=== PATIENT | female | born 1935 | race Two or more races ===

== ENCOUNTER 2017-10-22 12:44 | Inpatient (IN) | payer OTHER ==
[~2017-10-22] VITALS: Ht 149.9 cm; Wt 57.6 kg
[2017-10-22 13:15] VITALS: BP 151/94
[2017-10-22] MEDS ORDERED: Albuterol ud Inhalation HHN ONE (13:15)
[2017-10-22] MEDS ORDERED: Ipratropium 0.02% Inh Soln 2.5ml UD HHN ONE (13:15)
[2017-10-22 13:53] LABS: BASOPHILS % (AUTO) 1.4 % (0.0-2.0); EOSINOPHILS % (AUTO) 4.2 % (0.0-3.0); LYMPHOCYTES % (AUTO) 32.8 % (20.0-45.0); MEAN CORPUSCULAR HEMOGLOBIN 28.4 PG (27.0-31.0); MEAN CORPUSCULAR HGB CONC 31.3 G/DL (32.0-36.0); MEAN CORPUSCULAR VOLUME 91 FL (80-99); MEAN PLATELET VOLUME 6.8 FL (6.5-10.1); NEUTROPHILS % (AUTO) 51.6 % (45.0-75.0); PLATELET COUNT 277 K/UL (150-450); RED BLOOD COUNT 4.68 M/UL (4.20-5.40); WHITE BLOOD COUNT 13.9 K/UL (4.8-10.8)
[2017-10-22] MEDS ORDERED: Solu-MEDROL 125mg Inj IVP ONE (14:00)
[2017-10-22 14:07] LABS: PROTHROMBIN TIME 10.1 SEC (9.30-11.50)
[2017-10-22 14:08] LABS: ANION GAP 8 mmol/L (5-15); CALCIUM 9.3 MG/DL (8.5-10.1); CARBON DIOXIDE 25 MMOL/L (21-32); CHLORIDE 99 MMOL/L (98-107); CREATININE 0.7 MG/DL (0.55-1.30); POTASSIUM 4.8 MMOL/L (3.5-5.1); SODIUM 132 MMOL/L (136-145)
[2017-10-22 14:24] LABS: ALANINE AMINOTRANSFERASE 16 U/L (12-78); ALBUMIN/GLOBULIN RATIO 0.6 (1.0-2.7); ASPARTATE AMINO TRANSFERASE 42 U/L (15-37); TOTAL PROTEIN 8.9 G/DL (6.4-8.2)
[2017-10-22 14:40] LABS: APPEARANCE,URINE CLEAR; KETONES,URINE NEGATIVE (NEGATIVE); NITRITE,URINE NEGATIVE (NEGATIVE); PH,URINE 7 (4.5-8.0); PROTEIN,URINE NEGATIVE (NEGATIVE); UROBILINOGEN,URINE NORMAL MG/DL (0.0-1.0)
[2017-10-22 14:54] LABS: LEUKOCYTE ESTERASE ,URINE 1+ (NEGATIVE); RBC,URINE 0 /HPF (0 - 2); SQUAMOUS EPITHELIAL CELL,UR OCCASIONAL /LPF (NONE/OCC); WBC,URINE 0-2 /HPF (0 - 2)
[2017-10-22] MEDS ORDERED: ASPIRIN81 MG ORAL (15:01)
[2017-10-22] MEDS ORDERED: TAB-A-VITE1 EACH ORAL (15:02)
[2017-10-22] MEDS ORDERED: LISINOPRIL20 MG ORAL (15:02)
[2017-10-22] MEDS ORDERED: PROVENTIL HFA6.7 G1 IH (15:03)
[2017-10-22 15:05] VITALS: BP 148/90
[2017-10-22] MEDS ORDERED: Albuterol/Ipratropium 3ml neb HHN PRN (15:15)
[2017-10-22] MEDS ORDERED: Nitroglycerin Subl 0.4mg tab SL PRN (15:15)
[2017-10-22] MEDS ORDERED: Promethazine/Codeine 5ml UD ORAL PRN (15:15)
[2017-10-22] MEDS ORDERED: LORazepam Inj 2mg/ml 1ml IV PRN (15:15)
[2017-10-22] MEDS ORDERED: Morphine Sulfate 2mg/ml Inj IVP PRN (15:15)
[2017-10-22] MEDS ORDERED: Ketorolac 30mg Inj IV PRN (15:15)
--- NOTE | 2017-10-22 15:48 | Emergency Room Report ---
History of Present Illness General Chief Complaint: Dyspnea/Respdistress Source: Patient Present Illness HPI Patient is a 81-year-old female sent in by primary care physician for increased difficulty breathing. Patient prior history of lung disease. Patient reports taking inhalers. She is followed by Dr. Nolen. Patient reportedly had increased difficulty breathing. This was worse with exertion. Patient had prior history of asthma for which she takes inhalers. The patient was noted to have diminished oxygen saturation. she reported having increased nonproductive cough. Allergies: Coded Allergies: No Known Allergies (Unverified , 10/22/17) Patient History Past Medical History: see triage record Last Menstrual Period: na Reviewed Nursing Documentation: PMH: Agreed, PSxH: Agreed Nursing Documentation-PMH Past Medical History: No History, Except For Hx Hypertension: Yes Hx Asthma: Yes Review of Systems All Other Systems: negative except mentioned in HPI Physical Exam Vital Signs Date Time Temp Pulse Resp B/P (MAP) Pulse Ox O2 Delivery O2 Flow Rate FiO2 10/22/17 13:05 99.3 108 28 151/94 93 Room Air 10/22/17 13:33 21 Sp02 EP Interpretation: reviewed, normal General Appearance: normal inspection, alert, GCS 15, moderate distress, Chronically Ill Head: atraumatic ENT: normal ENT inspection, hearing grossly normal, normal voice Neck: normal inspection, full range of motion, supple, no bony tend Respiratory: normal inspection, no respiratory distress, no retraction, wheezing Cardiovascular #1: regular rate, rhythm, no edema Gastrointestinal: normal inspection, normal bowel sounds, non tender, soft, no guarding, no hernia Genitourinary: no CVA tenderness Musculoskeletal: normal inspection, back normal, normal range of motion Neurologic: normal inspection, alert, oriented x3, responsive, media manager III-XII nml as tested, speech normal Psychiatric: normal inspection, judgement/insight normal, mood/affect normal Skin: normal inspection, normal color, no rash Medical Decision Making Diagnostic Impression: Primary Impression: COPD with acute exacerbation ER Course Patient presented for abdominal pain. Differential included but was not limited to anemia, pneumonia, pneumothorax, myocardial infarction, pericardial effusion, congestive heart failure, acidosis. Because of complexity of patient' s case laboratory testing and imaging studies were ordered.EKG interpreted by me showed sinus tachycardia with rate [address] or T wave changes. Patient was noted to have an incomplete right bundle branch block. The patient started on IV steroids as well as breathing treatments. Chest x-ray one view interpreted by me showed interstitial lung markings which were increased consistent with chronic lung disease. Dr. peters was contacted for inpatient management due to insurance capitated hospitalist Labs Test 10/22/17 13:30 10/22/17 14:00 10/22/17 14:15 White Blood Count 13.9 K/UL (4.8-10.8) Red Blood Count 4.68 M/UL (4.20-5.40) Hemoglobin 13.3 G/DL (12.0-16.0) Hematocrit 42.6 % (37.0-47.0) Mean Corpuscular Volume 91 FL (80-99) Mean Corpuscular Hemoglobin 28.4 PG (27.0-31.0) Mean Corpuscular Hemoglobin Concent 31.3 G/DL (32.0-36.0) Red Cell Distribution Width 12.0 % (11.6-14.8) Platelet Count 277 K/UL (150-450) Mean Platelet Volume 6.8 FL (6.5-10.1) Neutrophils (%) (Auto) 51.6 % (45.0-75.0) Lymphocytes (%) (Auto) 32.8 % (20.0-45.0) Monocytes (%) (Auto) 10.0 % (1.0-10.0) Eosinophils (%) (Auto) 4.2 % (0.0-3.0) Basophils (%) (Auto) 1.4 % (0.0-2.0) Prothrombin Time 10.1 SEC (9.30-11.50) Prothromb Time International Ratio 1.0 (0.9-1.1) Activated Partial Thromboplast Time 29 SEC (23-33) D-Dimer 0.42 mg/L FEU (0.00-0.49) Sodium Level 132 MMOL/L (136-145) Potassium Level 4.8 MMOL/L (3.5-5.1) Chloride Level 99 MMOL/L (98-107) Carbon Dioxide Level 25 MMOL/L (21-32) Anion Gap 8 mmol/L (5-15) Blood Urea Nitrogen 12 mg/dL (7-18) Creatinine 0.7 MG/DL (0.55-1.30) Estimat Glomerular Filtration Rate mL/min (>60) Glucose Level 101 MG/DL (74-106) Calcium Level 9.3 MG/DL (8.5-10.1) Total Bilirubin 0.4 MG/DL (0.2-1.0) Aspartate Amino Transf (AST/SGOT) 42 U/L (15-37) Alanine Aminotransferase (ALT/SGPT) 16 U/L (12-78) Alkaline Phosphatase 66 U/L (46-116) Troponin I 0.000 ng/mL (0.000-0.056) Pro-B-Type Natriuretic Peptide 125 pg/mL (0-125) Total Protein 8.9 G/DL (6.4-8.2) Albumin 3.3 G/DL (3.4-5.0) Globulin 5.6 g/dL Albumin/Globulin Ratio 0.6 (1.0-2.7) Lactic Acid Level 1.00 mmol/L (0.66-2.22) Urine Color Pale yellow Urine Appearance Clear Urine pH 7 (4.5-8.0) Urine Specific [place] 1.010 (1.005-1.035) Urine Protein Negative (NEGATIVE) Urine Glucose (UA) Negative (NEGATIVE) Urine Ketones Negative (NEGATIVE) Urine Occult Blood Negative (NEGATIVE) Urine Nitrite Negative (NEGATIVE) Urine Bilirubin Negative (NEGATIVE) Urine Urobilinogen Normal MG/DL (0.0-1.0) Urine Leukocyte Esterase 1+ (NEGATIVE) Urine RBC 0 /HPF (0 - 2) Urine WBC 0-2 /HPF (0 - 2) Urine Squamous Epithelial Cells Occasional /LPF Urine Bacteria None /HPF (NONE) EKG Diagnostic Results Rate: tachycardiac - 106 Rhythm: NSR ST Segments: no acute changes Rhythm Strip Diag. Results EP Interpretation: yes Rhythm: NSR, no PVC's, no ectopy Last Vital Signs Date Time Temp Pulse Resp B/P (MAP) Pulse Ox O2 Delivery O2 Flow Rate FiO2 10/22/17 13:48 103 24 100 Room Air 21 10/22/17 13:15 99.3 151/94 Status: unchanged Condition: Serious Referrals: SUDHA NOLEN (PCP) Kelton Fitzgerald Oct 22, 2017 15:48
--- NOTE | 2017-10-22 16:27 | History and Physical ---
History of Present Illness General Date patient seen: Oct 22, 2017 Reason for Hospitalization: Dyspnea/Respdistress Present Illness HPI 81-year-old female with hx of HTN and asthma was sent in by primary care physician for increased difficulty breathing and dry cough. Slightest activity made her SOB. The patient was noted to have diminished oxygen saturation. she reported having increased nonproductive cough. She is admitted for acute exacerbation of COPD/ Asthma Allergies: Coded Allergies: No Known Allergies (Unverified , 10/22/17) Medication History Scheduled Aspirin* (Aspirin*), 81 MG ORAL DAILY, (Reported) Lisinopril (Lisinopril*), 20 MG ORAL DAILY, (Reported) Multivitamin (Tab-A-David), 1 TAB ORAL DAILY, (Reported) Miscellaneous Medications Albuterol Sulfate (Proventil Hfa), 90 MCG IH, (Reported) Patient History Healthcare decision maker Resuscitation status Advanced Directive on File Past Medical/Surgical History Past Medical/Surgical History: (1) History of asthma Review of Systems Constitutional: Reports: no symptoms Eye: Reports: no symptoms Physical Exam General Appearance: WD/WN, alert Lines, tubes and drains: peripheral, central line HEENT: normocephalic, atraumatic Neck: normal alignment, supple Respiratory/Chest: chest wall non-tender, lungs clear, decreased breath sounds Breasts: no masses Cardiovascular/Chest: normal rate, regular rhythm Abdomen: normal bowel sounds, non tender Genitourinary/Rectal: normal genital exam Last 24 Hour Vital Signs Date Time Temp Pulse Resp B/P (MAP) Pulse Ox O2 Delivery O2 Flow Rate FiO2 10/22/17 13:48 103 24 100 Room Air 21 10/22/17 13:33 21 10/22/17 13:33 100 21 Room Air 21 10/22/17 13:33 100 21 100 Room Air 21 10/22/17 13:15 99.3 104 25 151/94 93 Room Air 10/22/17 13:15 104 28 Room Air 10/22/17 13:05 99.3 108 28 151/94 93 Room Air Laboratory Tests Test 10/22/17 13:30 10/22/17 14:00 10/22/17 14:15 White Blood Count 13.9 K/UL (4.8-10.8) H Red Blood Count 4.68 M/UL (4.20-5.40) Hemoglobin 13.3 G/DL (12.0-16.0) Hematocrit 42.6 % (37.0-47.0) Mean Corpuscular Volume 91 FL (80-99) Mean Corpuscular Hemoglobin 28.4 PG (27.0-31.0) Mean Corpuscular Hemoglobin Concent 31.3 G/DL (32.0-36.0) L Red Cell Distribution Width 12.0 % (11.6-14.8) Platelet Count 277 K/UL (150-450) Mean Platelet Volume 6.8 FL (6.5-10.1) Neutrophils (%) (Auto) 51.6 % (45.0-75.0) Lymphocytes (%) (Auto) 32.8 % (20.0-45.0) Monocytes (%) (Auto) 10.0 % (1.0-10.0) Eosinophils (%) (Auto) 4.2 % (0.0-3.0) H Basophils (%) (Auto) 1.4 % (0.0-2.0) Prothrombin Time 10.1 SEC (9.30-11.50) Prothromb Time International Ratio 1.0 (0.9-1.1) Activated Partial Thromboplast Time 29 SEC (23-33) D-Dimer 0.42 mg/L FEU (0.00-0.49) Sodium Level 132 MMOL/L (136-145) L Potassium Level 4.8 MMOL/L (3.5-5.1) Chloride Level 99 MMOL/L (98-107) Carbon Dioxide Level 25 MMOL/L (21-32) Anion Gap 8 mmol/L (5-15) Blood Urea Nitrogen 12 mg/dL (7-18) Creatinine 0.7 MG/DL (0.55-1.30) Estimat Glomerular Filtration Rate mL/min (>60) Glucose Level 101 MG/DL (74-106) Calcium Level 9.3 MG/DL (8.5-10.1) Total Bilirubin 0.4 MG/DL (0.2-1.0) Aspartate Amino Transf (AST/SGOT) 42 U/L (15-37) H Alanine Aminotransferase (ALT/SGPT) 16 U/L (12-78) Alkaline Phosphatase 66 U/L (46-116) Troponin I 0.000 ng/mL (0.000-0.056) Pro-B-Type Natriuretic Peptide 125 pg/mL (0-125) Total Protein 8.9 G/DL (6.4-8.2) H Albumin 3.3 G/DL (3.4-5.0) L Globulin 5.6 g/dL Albumin/Globulin Ratio 0.6 (1.0-2.7) L Lactic Acid Level 1.00 mmol/L (0.66-2.22) Urine Color Pale yellow Urine Appearance Clear Urine pH 7 (4.5-8.0) Urine Specific [place] 1.010 (1.005-1.035) Urine Protein Negative (NEGATIVE) Urine Glucose (UA) Negative (NEGATIVE) Urine Ketones Negative (NEGATIVE) Urine Occult Blood Negative (NEGATIVE) Urine Nitrite Negative (NEGATIVE) Urine Bilirubin Negative (NEGATIVE) Urine Urobilinogen Normal MG/DL (0.0-1.0) Urine Leukocyte Esterase 1+ (NEGATIVE) H Urine RBC 0 /HPF (0 - 2) Urine WBC 0-2 /HPF (0 - 2) Urine Squamous Epithelial Cells Occasional /LPF Urine Bacteria None /HPF (NONE) Microbiology Date/Time Source Procedure Growth Status 10/22/17 13:35 Nasal Nares Influenza Types A,B Antigen (AMPARO) - Final Complete Height (Feet): 4 Height (Inches): 11.00 Weight (Pounds): 140 Medications Current Medications Medications (Trade) Dose Ordered Sig/Alex Route PRN Reason Start Time Stop Time Status Last Admin Dose Admin Albuterol/ Ipratropium (Albuterol/ Ipratropium) 3 ml Q4H PRN HHN dyspnea 10/22/17 15:15 10/27/17 15:14 Dextrose (Dextrose 50%) STAT PRN IV Hypoglycemia 10/22/17 15:15 11/21/17 15:14 Heparin Sodium (Porcine) (Heparin 5000 units/ml) 5,000 units EVERY 12 HOURS SUBQ 10/22/17 21:00 11/21/17 20:59 Ketorolac Tromethamine (Toradol 30mg) 30 mg Q8H PRN IV moderate pain 4-6 10/22/17 15:15 10/27/17 15:14 Lisinopril (Prinivil) 20 mg DAILY ORAL 10/23/17 09:00 11/22/17 08:59 Lorazepam (Ativan 2mg/ml 1ml) 0.5 mg Q4H PRN IV For Anxiety 10/22/17 15:15 10/29/17 15:14 Methylprednisolone Sodium Succinate (Solu-MEDROL) 60 mg EVERY 6 HOURS IV 10/22/17 18:00 11/21/17 17:59 Morphine Sulfate (Morphine Sulfate) 2 mg Q4H PRN IVP severe pain 7-10 10/22/17 15:15 10/29/17 15:14 Nitroglycerin (Ntg) 0.4 mg Q5M X 3 DOSES PRN SL Prn Chest Pain 10/22/17 15:15 11/21/17 15:14 Ondansetron HCl (Zofran) 4 mg Q6H PRN IVP Nausea & Vomiting 10/22/17 15:15 11/21/17 15:14 Piperacillin Sod/ Tazobactam Sod 3.375 gm/Dextrose 55 ml @ 13.75 mls/ hr Q8H IV 10/22/17 17:00 10/29/17 16:59 Promethazine HCl/ Codeine (Phenergan with Codeine) 5 ml Q6H PRN ORAL cough 10/22/17 15:15 11/21/17 15:14 Temazepam (Restoril) 15 mg HSPRN PRN ORAL Insomnia 10/22/17 15:15 10/29/17 15:14 Theophylline (Sharan-Dur) 100 mg EVERY 12 HOURS ORAL 10/22/17 21:00 11/21/17 20:59 Assessment/Plan Problem List: (1) Acute respiratory failure ICD Codes: J96.00 - Acute respiratory failure, unspecified whether with hypoxia or hypercapnia SNOMED: 01914815 (2) COPD with acute exacerbation ICD Codes: J44.1 - Chronic obstructive pulmonary disease with (acute) exacerbation SNOMED: 938273001 (3) History of asthma ICD Codes: Z87.09 - Personal history of other diseases of the respiratory system SNOMED: 678466369 Assessment/Plan respiratory treatment IV steroids IV abx check sputum titrate fio2 to sat of 92% ALICIA BOX Oct 22, 2017 16:27
[2017-10-22] MEDS: Piperacillin/Tazobactam 3.375 GM in D5W 55 ML IV SCH (17:46)
[2017-10-22] MEDS: Solu-MEDROL 125mg Inj IV SCH ×2 (17:46→23:55)
[2017-10-22 20:00] VITALS: BP 131/76
[2017-10-22] MEDS: Theophylline ER 100mg ORAL SCH (21:00)
[2017-10-22] MEDS: Heparin 5000 units/ml inj SUBQ SCH (21:01)
[2017-10-23 00:23] VITALS: BP 139/79
[2017-10-23] MEDS: Piperacillin/Tazobactam 3.375 GM in D5W 55 ML IV SCH ×3 (01:18→18:17)
[2017-10-23 04:20] VITALS: BP 140/77
[2017-10-23] MEDS: Solu-MEDROL 125mg Inj IV SCH ×4 (06:00→23:46)
[2017-10-23 08:00] VITALS: BP 142/75
[2017-10-23] MEDS ORDERED: Lisinopril 20mg tab ORAL SCH (09:00)
[2017-10-23] MEDS ORDERED: Tubing IV Secondary IV ONE (10:24)
[2017-10-23] MEDS ORDERED: NS 500ML ONE (10:24)
[2017-10-23] MEDS: Theophylline ER 100mg ORAL SCH ×2 (10:49→22:15)
[2017-10-23] MEDS: Heparin 5000 units/ml inj SUBQ SCH ×2 (10:51→22:15)
[2017-10-23 12:00] VITALS: BP 141/84
--- NOTE | 2017-10-23 14:40 | Pulmonology Progress Note ---
Assessment/Plan Problems: (1) Acute respiratory failure (2) COPD with acute exacerbation (3) History of asthma Assessment/Plan improving respiratory treatment check cultures taper steroids when respiratory symptoms improve Subjective ROS Limited/Unobtainable: No Constitutional: Reports: no symptoms HEENT: Repors: no symptoms Respiratory: Reports: no symptoms Allergies: Coded Allergies: No Known Allergies (Unverified , 10/22/17) Objective Last 24 Hour Vital Signs Date Time Temp Pulse Resp B/P (MAP) Pulse Ox O2 Delivery O2 Flow Rate FiO2 10/23/17 12:00 97.0 106 20 141/84 96 10/23/17 10:49 142/75 10/23/17 08:00 97.2 102 20 142/75 97 10/23/17 07:51 101 18 Nasal Cannula 2.0 28 10/23/17 04:20 97.0 100 20 140/77 95 10/23/17 04:00 93 10/23/17 00:23 97.3 100 20 139/79 93 Nasal Cannula 10/23/17 00:00 101 10/22/17 20:28 99 18 Room Air 2.0 28 10/22/17 20:00 97.0 104 20 131/76 96 10/22/17 20:00 102 10/22/17 16:45 98.5 106 22 148/90 96 Nasal Cannula 2.0 10/22/17 15:05 98.5 106 22 148/90 96 Nasal Cannula 2.0 General Appearance: WD/WN HEENT: atraumatic, anicteric Respiratory/Chest: chest wall non-tender, lungs clear Breasts: no masses Cardiovascular: normal rate Abdomen: normal bowel sounds, no organomegaly Genitourinary: normal external genitalia Extremities: no cyanosis Skin: no rash Microbiology Date/Time Source Procedure Growth Status 10/22/17 13:35 Nasal Nares Influenza Types A,B Antigen (AMPARO) - Final Complete Current Medications Medications (Trade) Dose Ordered Sig/Alex Route PRN Reason Start Time Stop Time Status Last Admin Dose Admin Albuterol/ Ipratropium (Albuterol/ Ipratropium) 3 ml Q4H PRN HHN dyspnea 10/22/17 15:15 10/27/17 15:14 Dextrose (Dextrose 50%) STAT PRN IV Hypoglycemia 10/22/17 15:15 11/21/17 15:14 Heparin Sodium (Porcine) (Heparin 5000 units/ml) 5,000 units EVERY 12 HOURS SUBQ 10/22/17 21:00 11/21/17 20:59 10/23/17 10:51 Ketorolac Tromethamine (Toradol 30mg) 30 mg Q8H PRN IV moderate pain 4-6 10/22/17 15:15 10/27/17 15:14 Lisinopril (Prinivil) 20 mg DAILY ORAL 10/23/17 09:00 11/22/17 08:59 10/23/17 10:49 Lorazepam (Ativan 2mg/ml 1ml) 0.5 mg Q4H PRN IV For Anxiety 10/22/17 15:15 10/29/17 15:14 Methylprednisolone Sodium Succinate (Solu-MEDROL) 60 mg EVERY 6 HOURS IV 10/22/17 18:00 11/21/17 17:59 10/23/17 13:42 Morphine Sulfate (Morphine Sulfate) 2 mg Q4H PRN IVP severe pain 7-10 10/22/17 15:15 10/29/17 15:14 Nitroglycerin (Ntg) 0.4 mg Q5M X 3 DOSES PRN SL Prn Chest Pain 10/22/17 15:15 11/21/17 15:14 Ondansetron HCl (Zofran) 4 mg Q6H PRN IVP Nausea & Vomiting 10/22/17 15:15 11/21/17 15:14 Piperacillin Sod/ Tazobactam Sod 3.375 gm/Dextrose 55 ml @ 13.75 mls/ hr Q8H IV 10/22/17 17:00 10/29/17 16:59 10/23/17 10:48 Promethazine HCl/ Codeine (Phenergan with Codeine) 5 ml Q6H PRN ORAL cough 10/22/17 15:15 11/21/17 15:14 Temazepam (Restoril) 15 mg HSPRN PRN ORAL Insomnia 10/22/17 15:15 10/29/17 15:14 Theophylline (Sharan-Dur) 100 mg EVERY 12 HOURS ORAL 10/22/17 21:00 11/21/17 20:59 10/23/17 10:49 ALICIA BOX Oct 23, 2017 14:40
[2017-10-23 16:00] VITALS: BP 133/75
[2017-10-23 20:00] VITALS: BP 143/66
[2017-10-23] MEDS ORDERED: Nitroglycerin Subl 0.4mg tab SL PRN (21:30)
[2017-10-23] MEDS ORDERED: Ketorolac 30mg Inj IV PRN (22:00)
[2017-10-23] MEDS ORDERED: Albuterol/Ipratropium 3ml neb HHN PRN (22:00)
[2017-10-23] MEDS ORDERED: Promethazine/Codeine 5ml UD ORAL PRN (22:00)
[2017-10-23] MEDS ORDERED: Morphine Sulfate 2mg/ml Inj IVP PRN (22:00)
[2017-10-23] MEDS ORDERED: LORazepam Inj 2mg/ml 1ml IV PRN (22:00)
[2017-10-24] VITALS: BP 137/75
[2017-10-24] MEDS: Piperacillin/Tazobactam 3.375 GM in D5W 55 ML IV SCH ×2 (01:00→09:10)
[2017-10-24 04:00] VITALS: BP 152/67
[2017-10-24] MEDS: Solu-MEDROL 125mg Inj IV SCH ×3 (06:37→22:05)
[2017-10-24 06:58] LABS: BASOPHILS % (AUTO) 0.2 % (0.0-2.0); LYMPHOCYTES % (AUTO) 15.9 % (20.0-45.0); MEAN CORPUSCULAR HEMOGLOBIN 29.4 PG (27.0-31.0); MEAN CORPUSCULAR HGB CONC 32.7 G/DL (32.0-36.0); MEAN CORPUSCULAR VOLUME 90 FL (80-99); MEAN PLATELET VOLUME 7.9 FL (6.5-10.1); MONOCYTES % (AUTO) 2.8 % (1.0-10.0); NEUTROPHILS % (AUTO) 81.1 % (45.0-75.0); PLATELET COUNT 266 K/UL (150-450); RED CELL DISTRIBUTION WIDTH 12.2 % (11.6-14.8); WHITE BLOOD COUNT 17.1 K/UL (4.8-10.8)
[2017-10-24 07:06] LABS: ALANINE AMINOTRANSFERASE 15 U/L (12-78); ALBUMIN/GLOBULIN RATIO 0.6 (1.0-2.7); ANION GAP 8 mmol/L (5-15); ASPARTATE AMINO TRANSFERASE 19 U/L (15-37); CALCIUM 8.9 MG/DL (8.5-10.1); CARBON DIOXIDE 26 MMOL/L (21-32); CHLORIDE 101 MMOL/L (98-107); CREATININE 0.7 MG/DL (0.55-1.30); PHOSPHORUS 2.5 MG/DL (2.5-4.9); POTASSIUM 4.3 MMOL/L (3.5-5.1); SODIUM 135 MMOL/L (136-145); TOTAL PROTEIN 7.9 G/DL (6.4-8.2)
[2017-10-24 08:00] VITALS: BP 137/63
[2017-10-24] MEDS ORDERED: Lisinopril 20mg tab ORAL SCH (09:00)
[2017-10-24] MEDS: Theophylline ER 100mg ORAL SCH ×2 (09:07→22:04)
[2017-10-24] MEDS: Heparin 5000 units/ml inj SUBQ SCH ×2 (09:09→22:08)
[2017-10-24 11:48] VITALS: BP 124/60
--- NOTE | 2017-10-24 15:38 | Pulmonology Progress Note ---
Assessment/Plan Problems: (1) Acute respiratory failure (2) COPD with acute exacerbation (3) History of asthma Assessment/Plan improving respiratory treatment check cultures, all negative dc home with close f/u with primary Subjective ROS Limited/Unobtainable: No Constitutional: Reports: no symptoms HEENT: Repors: no symptoms Respiratory: Reports: no symptoms Allergies: Coded Allergies: No Known Allergies (Unverified , 10/22/17) Objective Last 24 Hour Vital Signs Date Time Temp Pulse Resp B/P (MAP) Pulse Ox O2 Delivery O2 Flow Rate FiO2 10/24/17 11:48 97.3 50 14 124/60 95 Nasal Cannula 10/24/17 09:07 137/63 10/24/17 08:04 96 Nasal Cannula 3.0 32 10/24/17 08:04 75 20 Nasal Cannula 3.0 32 10/24/17 08:04 Nasal Cannula 3.0 32 10/24/17 08:00 97.0 88 21 137/63 96 Nasal Cannula 2.0 10/24/17 04:00 97.6 57 18 152/67 97 10/24/17 00:32 89 20 Nasal Cannula 3.0 32 10/24/17 00:00 98.2 95 19 137/75 95 10/23/17 20:00 97.3 80 20 143/66 95 Nasal Cannula 20 10/23/17 16:00 97.2 91 21 133/75 95 10/23/17 16:00 102 General Appearance: WD/WN HEENT: normocephalic, anicteric Respiratory/Chest: lungs clear, normal breath sounds Cardiovascular: normal peripheral pulses, regular rhythm Abdomen: normal bowel sounds, no organomegaly Genitourinary: normal external genitalia Extremities: no clubbing Skin: no rash, no lesions Microbiology Date/Time Source Procedure Growth Status 10/22/17 13:45 Blood Blood Culture - Preliminary NO GROWTH AFTER 24 HOURS Resulted 10/22/17 13:30 Blood Blood Culture - Preliminary NO GROWTH AFTER 24 HOURS Resulted 10/22/17 13:35 Nasal Nares Influenza Types A,B Antigen (AMPARO) - Final Complete Laboratory Tests 10/24/17 04:45: White Blood Count 17.1H, Red Blood Count 4.30, Hemoglobin 12.6, Hematocrit 38.7 , Mean Corpuscular Volume 90, Mean Corpuscular Hemoglobin 29.4, Mean Corpuscular Hemoglobin Concent 32.7, Red Cell Distribution Width 12.2, Platelet Count 266, Mean Platelet Volume 7.9, Neutrophils (%) (Auto) 81.1H, Lymphocytes ( %) (Auto) 15.9L, Monocytes (%) (Auto) 2.8, Eosinophils (%) (Auto) 0.0, Basophils (%) (Auto) 0.2, Sodium Level 135L, Potassium Level 4.3, Chloride Level 101, Carbon Dioxide Level 26, Anion Gap 8, Blood Urea Nitrogen 15, Creatinine 0.7, Estimat Glomerular Filtration Rate , Glucose Level 182H, Calcium Level 8.9, Phosphorus Level 2.5, Magnesium Level 2.0, Total Bilirubin 0.3, Aspartate Amino Transf (AST/SGOT) 19, Alanine Aminotransferase (ALT/SGPT) 15, Alkaline Phosphatase 60, Total Protein 7.9, Albumin 3.0L, Globulin 4.9, Albumin/Globulin Ratio 0.6L Current Medications Medications (Trade) Dose Ordered Sig/Alex Route PRN Reason Start Time Stop Time Status Last Admin Dose Admin Albuterol/ Ipratropium (Albuterol/ Ipratropium) 3 ml Q4H PRN HHN dyspnea 10/23/17 22:00 10/27/17 21:59 Dextrose (Dextrose 50%) STAT PRN IV Hypoglycemia 10/23/17 22:00 11/22/17 21:59 Heparin Sodium (Porcine) (Heparin 5000 units/ml) 5,000 units EVERY 12 HOURS SUBQ 10/23/17 22:00 11/22/17 21:59 10/24/17 09:09 Ketorolac Tromethamine (Toradol 30mg) 30 mg Q8H PRN IV moderate pain 4-6 10/23/17 22:00 10/27/17 21:59 Lisinopril (Prinivil) 20 mg DAILY ORAL 10/24/17 09:00 11/22/17 08:59 10/24/17 09:07 Lorazepam (Ativan 2mg/ml 1ml) 0.5 mg Q4H PRN IV For Anxiety 10/23/17 22:00 10/29/17 21:59 Methylprednisolone Sodium Succinate (Solu-MEDROL) 60 mg EVERY 6 HOURS IV 10/24/17 00:00 11/21/17 17:59 10/24/17 11:53 Morphine Sulfate (Morphine Sulfate) 2 mg Q4H PRN IVP severe pain 7-10 10/23/17 22:00 10/29/17 21:59 10/24/17 02:15 Nitroglycerin (Ntg) 0.4 mg Q5M X 3 DOSES PRN SL Prn Chest Pain 10/23/17 21:30 11/21/17 15:14 Ondansetron HCl (Zofran) 4 mg Q6H PRN IVP Nausea & Vomiting 10/23/17 22:00 11/22/17 21:59 Piperacillin Sod/ Tazobactam Sod 3.375 gm/Dextrose 55 ml @ 13.75 mls/ hr Q8H IV 10/24/17 01:00 10/31/17 00:59 10/24/17 09:10 Promethazine HCl/ Codeine (Phenergan with Codeine) 5 ml Q6H PRN ORAL cough 10/23/17 22:00 11/22/17 21:59 Temazepam (Restoril) 15 mg HSPRN PRN ORAL Insomnia 10/23/17 22:00 10/30/17 21:59 Theophylline (Sharan-Dur) 100 mg EVERY 12 HOURS ORAL 10/23/17 22:30 11/22/17 22:29 10/24/17 09:07 ALICIA BOX Oct 24, 2017 15:38
[2017-10-24 16:20] VITALS: BP 150/86
[2017-10-24] MEDS ORDERED: Bactrim DS (160mg/800mg) tab ORAL SCH (17:00)
--- NOTE | 2017-10-24 17:12 | Cardiology Report ---
APPROVED REPORT EKG Measurement Heart [id number] Sinus tachycardia Incomplete right bundle branch block Left anterior fascicular block Inferior infarct, age undetermined Anterior infarct, age undetermined Abnormal ECG
[2017-10-24 19:26] VITALS: BP 153/78
[2017-10-24] MEDS ORDERED: Theophylline ER 100mg ORAL SCH (22:00)
[2017-10-25 00:44] VITALS: BP 139/57
[2017-10-25 04:56] VITALS: BP 145/70
[2017-10-25 08:00] VITALS: BP 126/63
[2017-10-25] MEDS: Theophylline ER 100mg ORAL SCH (08:19)
[2017-10-25] MEDS: Solu-MEDROL 125mg Inj IV SCH (08:20)
[2017-10-25] MEDS: Heparin 5000 units/ml inj SUBQ SCH (08:38)
[2017-10-25] MEDS ORDERED: Lisinopril 10mg tab ORAL SCH (09:00)
--- NOTE | 2017-10-25 10:30 | Diagnostic Imaging Report ---
Indication: Shortness of breath Technique: XRAY CHEST 1 V Comparison: None Findings: Heart size appears within normal limits. Mediastinal contours appear sharp. The thoracic aorta is mildly tortuous. There is bilateral interstitial edema/opacification. There are patchy perihilar airspace opacities, right greater than left. There is no large pleural effusion. No definite pneumothorax. No acute osseous abnormality is seen. Impression: Bilateral interstitial opacification/edema with patchy airspace opacities. Findings may be related to interstitial edema with developing foci of alveolar edema. Superimposed pneumonia is not entirely excluded. Clinical correlation and followup exam recommended.
[2017-10-25] MEDS ORDERED: BACTRIM DOUBLE S1 E1 ORAL (10:45)
[2017-10-25] MEDS ORDERED: PREDNISONE20 M1 PO (10:45)
[2017-10-25] MEDS ORDERED: PREDNISONE10 M2 PO (10:45)
[2017-10-25 12:03] VITALS: BP 130/76
--- NOTE | 2017-10-25 14:40 | Diagnostic Imaging Report ---
Indication: Shortness of breath Technique: XRAY CHEST 1 V Comparison: 10/22/17 Findings: Heart size and mediastinal contours are stable. There are persistent interstitial opacification/edema.. Previously seen perihilar opacities are slightly decreased There is no large pleural effusion. No definite pneumothorax. No acute osseous abnormality is seen. Impression: Persistent bilateral predominantly interstitial airspace opacities. Previously seen perihilar patchy opacities are slightly improved.
--- NOTE | 2017-10-25 16:52 | Pulmonology Progress Note ---
Assessment/Plan Problems: (1) Acute respiratory failure (2) COPD with acute exacerbation (3) History of asthma Assessment/Plan improving respiratory treatment check cultures, all negative dc home with oral meds Subjective ROS Limited/Unobtainable: No Constitutional: Reports: no symptoms HEENT: Repors: no symptoms Respiratory: Reports: no symptoms Cardiovascular: Reports: no symptoms Allergies: Coded Allergies: No Known Allergies (Unverified , 10/22/17) Objective Last 24 Hour Vital Signs Date Time Temp Pulse Resp B/P (MAP) Pulse Ox O2 Delivery O2 Flow Rate FiO2 10/25/17 12:03 98.1 81 16 130/76 95 Room Air 10/25/17 08:19 126/63 10/25/17 08:00 97.3 92 18 126/63 94 Room Air 10/25/17 04:56 96.5 85 14 145/70 Room Air 10/25/17 00:44 96.8 47 14 139/57 96 Room Air 10/24/17 21:45 97 Nasal Cannula 3.0 32 10/24/17 21:44 Nasal Cannula 3.0 32 10/24/17 21:43 69 18 Nasal Cannula 3.0 32 10/24/17 19:26 96.8 86 16 153/78 93 Room Air General Appearance: WD/WN HEENT: normocephalic, atraumatic Respiratory/Chest: chest wall non-tender, lungs clear Breasts: no masses Cardiovascular: normal peripheral pulses, normal rate Abdomen: normal bowel sounds, soft, non tender Genitourinary: normal external genitalia Skin: no rash ALICIA BOX Oct 25, 2017 16:52
--- NOTE | 2017-10-28 08:37 | Discharge Summary ---
Discharge Summary Hospital Course Date of Admission Oct 22, 2017 at 14:39 Date of Discharge Oct 25, 2017 at 12:45 Admitting Diagnosis asthma exacerbation HPI Deidre Rothman is a 82 year old female who was admitted on Oct 22, 2017 at 14:39 for Asthma Exacerbation Hospital Course dc summary #[id number] Discharge Medications Continued Medications: Albuterol Sulfate (Proventil Hfa) 6.7 Gm Hfa.aer.ad 90 MCG IH Lisinopril (Lisinopril*) 20 Mg Tablet 20 MG ORAL DAILY, TAB Prednisone (Prednisone) 20 Mg Tablet 20 MG PO for 5 Days, TAB Trimethoprim/Sulfamethoxazole (Bactrim 400-80 mg Tablet) 1 Each Tablet 1 TAB ORAL DAILY for 5 Days, TAB Discharge Condition Upon Discharge: stable Discharge Disposition Patient was discharged to Home (01) Discharge Diagnoses: Discharge Instructions Discharge Instructions Special Instructions I have been assigned to complete a D/C Summary on this account. I was not involved in the patient management oSnia Srinivasan NP ([facility]te[place]) Oct 28, 2017 08:37
--- NOTE | 2017-10-28 20:30 | Discharge Summary 2 SIG ---
DATE OF ADMISSION: 10/22/2017 DATE OF DISCHARGE: 10/25/2017 REASON FOR ADMISSION: 82-year-old female with a history of asthma and hypertension, presented to emergency department with difficulty breathing and dry cough. She was sent for evaluation by her primary care physician. The patient had a prior history of asthma and reported that slightest activity made her short of breath. The patient also reported nonproductive cough. No hemoptysis. Occasional wheezing. No chest pain. Troponin was negative. EKG revealed normal sinus rhythm, no acute ischemic changes, and incomplete right bundle-branch block. Pro BNP - 125. Chest x-ray revealed interstitial lung markings consistent with chronic lung disease. Laboratory workup revealed WBC - 13.9. The patient was admitted with chronic obstructive pulmonary disease with acute exacerbation. HOSPITAL STAY: The patient was admitted. The patient was started on supplemental oxygen. Fraction of inspired oxygen was titrated to keep saturation above 92%. Pulmonary toilet in the form of handheld nebulizing and chest physical therapy was provided. The patient was started on IV steroids,which were gradually tapered and changed to oral for additional five days upon discharge. The patient was on IV antibiotics. Sputum specimen was not collected , since cough was nonproductive. Blood cultures were negative. Influenza screen was negative. The patient was on trial of theophylline while in the hospital. Antitussives provided as needed. DVT prophylaxis provided. Lactic acid within normal limits. Blood pressure was controlled with GAURAV inhibitor and was stable. Follow up chest x-ray revealed the same chronic changes seen on initial imaging and also demonstrated previously seen perihilar opacity , which decreased. No pleural effusion. No pneumothorax. The patient clinically improved. The patient still had leukocytosis likely secondary to steroids, however, afebrile and clinically improved. The patient was stable for discharge. FINAL DIAGNOSES: 1. Acute respiratory failure. 2. Chronic obstructive pulmonary disease with acute exacerbation. 3. History of asthma. DISCHARGE MEDICATIONS: See medication reconciliation list. The patient was given a prescription for short pulse of oral steroids with gradual tapering and oral antibiotics. DISCHARGE INSTRUCTIONS: The patient to follow up with the primary medical doctor/physics professor next week. Mirali Zarrabi, M.D. I have been assigned to dictate discharge summary on this account and I was not involved in the patient's management. Sonia Srinivasan (Vanchtein) N.PHipolito DR: DEE JOB#: [id number] CC: HU
== END 2017-10-25 12:45 | disposition home or self-care (01) | DRG 189 ==
LOC: EMR 13:15 → 2E 14:39 → EDBEDREQ 15:07 → 4E 10-23 21:34
DX: J96.00 Acute respiratory failure, unspecified whether with hypoxia or hypercapnia (principal); J44.1 Chronic obstructive pulmonary disease with (acute) exacerbation; I10 Essential (primary) hypertension
CPT/HCPCS: 36415; 71010; 80053; 81003; 83605; 83735; 83880; 84100; 84484; 85025; 85379; 85610; 85730; 86710; 87040; 93005; 94640; 94664; 94760; 99285